=== PATIENT | female | born 1975 | race Two or more races ===

== ENCOUNTER → 2024-10-23 | Outpatient (CLI) | payer BC, SELFPAY ==
--- NOTE | 2024-10-23 | XR_ITS ---
Examination: Diagnostic digital mammography, bilateral Computer aided detection 3-D breast Tomosynthesis, bilateral Date and time of exam: October 23, 2024 1009 hours INDICATIONS: Mammogram July 12, 2024 28 mm focal asymmetry upper outer right breast anterior depth, 20 mm focal asymmetry upper outer left breast Technique: Nonmagnified MLO, CC views of the breasts to been obtained, reconstructed from 3-D Tomosynthesis images. R2 computer aided detection program utilized for evaluation of suspicious masses and/or abnormal calcifications. 3-D Tomosynthesis images obtained. Findings: The breasts are heterogeneously dense, which may obscure small masses No suspicious nodules are depicted on the spot compression views Ultrasound examination today demonstrates bilateral benign breast cysts Impression: BI-RADS Category 2: Benign findings Return to yearly follow-up mammography.
--- NOTE | 2024-10-23 09:00 | XR_ITS ---
Examination: Breast ultrasound complete, bilateral Date and time of exam: October 23, 2024 at 0907 hours INDICATIONS: Left breast pain 2 years, history left breast cyst aspiration 2:00 position August 19, 2016, mammogram July 12, 2024 20 mm focal asymmetry upper outer right breast anterior depth Technique: Real-time grayscale ultrasonographic imaging bilateral breasts, including all 4 quadrants as well as nipple retroareolar and axillary regions. Findings: Sonographic images right breast Multiple benign cysts, the largest in the 10:00 position 14 x 8 mm and 13 x 11 mm No solid nodules Sonographic images left breast Multiple benign cysts, the largest in the 2:00 position 22 x 8 mm No solid nodules IMPRESSION: BI-RADS Category 2: Benign findings
== END | disposition home or self-care (01) ==
PROVIDERS: PCP Family Medicine; Referring Provider Family Medicine; Visit Provider Family Medicine
DX: R92.323 Mammographic fibroglandular density, bilateral breasts (principal); N60.01 Solitary cyst of right breast; N60.02 Solitary cyst of left breast
CPT/HCPCS: 76641; 77062; 77066; G0279